=== PATIENT | male | born 2000 | race African-American/Black ===

== ENCOUNTER 2022-12-31 02:06 | Emergency (ER) | payer OTHER, SELFPAY ==
--- NOTE | 2022-12-31 02:18 | DI.RAD.S_ITS ---
PROCEDURE: XR FINGER LT MIN 2V INDICATIONS: crush injury TECHNIQUE: AP hand, 2 views of the left thumb finger(s) acquired. COMPARISON: None. FINDINGS: Bones: There is a fracture of the distal phalanx of the little left thumb with mild displacement measuring approximately 2.5 mm. Overlying soft tissue swelling. Overlying bandage material obscures fine osseous details. Remainder of the visualized osseous structures appear intact. Soft tissues: No suspicious soft tissue calcifications. No radiopaque soft tissue foreign bodies . IMPRESSION: Mildly displaced fracture involving the distal phalanx of the left thumb. 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 Dictated by: Norberto Green M.D. on 12/31/2022 at 7:17 Approved by: Norberto Green M.D. on 12/31/2022 at 7:18
[2022-12-31 02:20] VITALS: BP 123/68; PULSE 83; RESP 16; TEMP 36.6; O2SAT 98; BMI 17.4
--- NOTE | 2022-12-31 02:39 | ED_ITS ---
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 He was wearing gloves and working with a heavy wrench and piece of metal that slipped and caught the tip of his left thumb. He suffered an injury with pain and bleeding and presents for evaluation. He denies any numbness, tingling or weakness. He denies other injury. He is had no chest pain or shortness of breath and does not dizzy, weak or lightheaded. Related Data Previous Rx's Medication Instructions Recorded cephalexin 500 mg capsule 500 mg PO Q6H 7 days #28 caps 12/31/22 hydrocodone 5 mg-acetaminophen 325 1 tab PO Q4-6H PRN pain #10 tabs 12/31/22 mg tablet Allergies Allergy/AdvReac Type Severity Reaction Status Date / Time No Known Drug Allergies Allergy Verified 12/31/22 04:21 Review of Systems Review of Systems Narrative: GENERAL: Denies chills, fatigue, malaise, fever, sweats. HEENT: Denies sinus pain, ear pain, sore throat, difficulty swallowing, dizziness. RESPIRATORY: Denies dyspnea, cough, wheezing, hemoptysis, sputum. CARDIOVASCULAR: Denies chest pain, palpitations, orthopnea, edema, GASTROINTESTINAL: Denies nausea, vomiting, abdominal pain, diarrhea, constipation, melena. : Denies dysuria, frequency, incontinence, hematuria, urinary retention. MUSCULOSKELETAL: See HPI SKIN: Denies rash, skin lesions, or other NEUROLOGIC: Denies weakness, headache, numbness, change in speech, confusion, seizures, incoordination. PSYCHIATRIC: No concerning psychosocial issues. 12 point review of systems is negative except for those stated above Patient History Social History Smoking Status: Never smoker Smoking Status: Never smoker alcohol intake frequency: 0-2 drinks per day Substance Use Type: does not use Exam Narrative Exam Narrative: GEN: AOx3 and in mild distress EYES: Pupils are equal, round, and reactive to light and accommodation. Extraoccular muscles are intact bilaterally. There is no subconjunctival hemorrhage or exudate. CHEST: Lungs are clear to auscultation bilaterally and free of wheezes, rales, or rhonchi. Heart rate is regular rhythm, there are no murmurs, clicks, rubs, or gallops. There is no chest wall tenderness. ABD: Abdomen is soft and nontender. There is no guarding or rebound. Bowel sounds are normal in all 4 quadrants. There is no mass or organomegaly. EXT: Full but painful range of motion of left thumb, there is soft tissue loss and the entire nail is gone including some soft tissue starting at the nail fold or just proximal but entirely distal to the D IP. There is some moderate bleeding coming from nail bed, no obvious foreign body, no significant bone exposure. SKIN: Warm, pink, and dry. No erythema or rash Initial Vital Signs Initial Vital Signs: Vital Signs Temperature 97.8 F 12/31/22 02:20 Pulse Rate 83 12/31/22 02:20 Respiratory Rate 16 12/31/22 02:20 Blood Pressure 123/68 12/31/22 02:20 Pulse Oximetry 98 12/31/22 02:20 Oxygen Delivery Method Room Air 12/31/22 02:20 Procedures Laceration Repair Laceration 1: Site: hand Side (If applicable): left Description: other (nailbed) Depth: simple, single layer Pre-repair: wound explored, irrigated extensively, deep structures intact and cleansed with chlorhexadine Subcutaneous layer closed with: vicryl Subcutaneous layer suture size: 5-0 Number of sutures: 3 Technique: simple, interrupted Orthopedic Splinting/Casting Injury #1: Side: left Upper Extremity Injury Location: finger Upper Extremity Immobilizer: finger (other) Post splinting neuro exam: intact Post splinting vascular exam: intact Placed by: Nursing Course Orders Ordered: ED Orders 12/31/22 02:18 XR finger LT min 2V Stat Discontinued Medications Hydrocodone Bitart/Acetaminophen (Hydrocodone/Acet 5/325 Prepack) 1 bottle MISC SEEINSTR ONE Stop: 12/31/22 04:15 Last Admin: 12/31/22 05:18 Dose: 1 bottle Cefazolin Sodium (Cephalexin 250 Mg Cap Prepack) 1 bottle MISC SEEINSTR ONE Stop: 12/31/22 04:15 Last Admin: 12/31/22 05:18 Dose: 2 cap Diphtheria/Tetanus/Acell Pertussis (Tet,Diph,Pertuss(Acell),Vac/Pf 0.5 Ml Syringe) 0.5 ml IM .ONCE ONE Stop: 12/31/22 04:16 Last Admin: 12/31/22 05:18 Dose: 0.5 ml Tranexamic Acid (Tranexamic Acid 1,000 Mg Vial) 1,000 mg TOP NOW ONE Stop: 12/31/22 04:01 Reevaluation(s) Reevaluation #1: Bleeding controlled with 3 sutures and nail bed, Surgicel and gauze Consultations Consultation #1: Discussed with on-call orthopedist, Dr. Shelton. We have discussed history and physical exam, he is reviewed imaging and recommends hemostasis as perform, splinting, antibiotics and follow-up in the clinic Vital Signs Vital signs: Vital Signs - 8 hr 12/31/22 02:20 Temperature 97.8 F Pulse Rate 83 Respiratory Rate 16 Blood Pressure 123/68 Pulse Oximetry 98 Oxygen Delivery Method Room Air MDM - Extremity Injury (Upper) MDM Narrative Medical decision making narrative: [22] year old patient presents with injury to the tip of left thumb with tissue loss Multiple etiologies for patient's symptoms considered including, but not limited to: [Nail bed injury, open tuft fracture versus other] Primary Historian: patient Imaging reviewed: Tuft fracture, open Consultations: Dr. Shelton Patient's symptoms improved over duration of stay with above-stated therapies. Hemostasis achieved by above-stated interventions. Tetanus updated, patient started on antibiotics. Consultation with orthopedist, patient splinted Findings and discharge diagnosis discussed with patient/family followed by verbalization of understanding Return precautions discussed with patient/family whom verbalize understanding of diagnosis and plan Discharge Plan Departure Patient Disposition: Home Clinical Impression: Open fracture of tuft of distal phalanx of finger, Nailbed laceration, finger Instructions: DI for Laceration Repair -- Finger Activity Restrictions/Additional Instructions: *You have been diagnosed with [open tuft fracture of left thumb with soft tissue loss and nail bed laceration] *What to do: *Please continue to take your regular medications as directed. [x ] New medication prescriptions sent to your pharmacy: [ [facility]] [ ] New medication written as a paper prescription [x] Tylenol and occasional Motrin for pain *Please follow up with Dr. Woods ] of [facility] in 2-3 days, call for an appointment. Let them know you were seen in the Emergency Department and that we ask that you be seen in follow up. We will electronically transmit a record of today's note if your PCP is in our system *Return to Emergency Department if you should have any new, worsening or concerning symptoms, such as [worsening pain, significant swelling, cold extremities, numbness, tingling, weakness or other bothersome symptoms Splint Care: Keep splint clean and dry. Elevated affected body part to decrease swelling. OK to use ice pack on the affected body part. Use for 15-20 minutes each time, for 5-6x per day. If you develop worsening pain, numbness, tingling, discoloration of the affected body part, loosen the splint by loosening the ISRA wrap, and either see your doctor for an urgent re-assessment, or return to the Emergency Department. Return to the Emergency Department for any new or worsening symptoms. Prescriptions: New hydrocodone-acetaminophen 5-325 mg tablet 1 tab PO Q4-6H PRN (Reason: pain) Qty: 10 0RF cephalexin 500 mg capsule 500 mg PO Q6H 7 Days Qty: 28 0RF Stand Alone Forms: Patient Portal/API, Work Release Note
[2022-12-31] MEDS: TET,DIPH,PERTUSS(ACELL),VAC/PF 0.5 ML SYRINGE IM (05:18)
[2022-12-31] MEDS: cephALEXin 250 MG CAP PREPACK 1 BOTTLE MISC (05:18)
[2022-12-31] MEDS: HYDROCODONE/ACET 5/325 PREPACK 1 BOTTLE MISC (05:18)
[2022-12-31] MEDS: TRANEXAMIC ACID 1,000 MG VIAL 1000 MG TOP (05:20)
[2022-12-31 05:29] VITALS: BP 125/72; PULSE 74; RESP 16; O2SAT 100
== END 2022-12-31 05:31 | disposition home or self-care (01) ==
PROVIDERS: Emergency Provider Emergency Medicine
DX: S61.112A Laceration without foreign body of left thumb with damage to nail, initial encounter (principal); S62.522A Displaced fracture of distal phalanx of left thumb, initial encounter for closed fracture; W23.0XXA Caught, crushed, jammed, or pinched between moving objects, initial encounter; Z23 Encounter for immunization
CPT/HCPCS: 12001; 73140; 90471; 99283; 90715

== ENCOUNTER → 2023-01-06 13:56 | Outpatient (CLI) | payer OTHER, SELFPAY | PROVIDERS: PCP Orthopaedic Surgery; Referring Provider Orthopaedic Surgery; Visit Provider Surgery | DX: S67.02XA Crushing injury of left thumb, initial encounter (principal) | CPT/HCPCS: 97597; 99203; 99213 ==